=== PATIENT | female | born 1985 | race Hispanic/Latino ===

== ENCOUNTER 2016-09-11 13:09 | Outpatient (CLI) | payer BC ==
--- NOTE | 2016-09-11 14:43 | Mammography Report ---
RIGHT DIGITAL DIAGNOSTIC MAMMOGRAM: 09/11/16 13:09:00 CLINICAL: For clip placement immediately status post ultrasound biopsy. COMPARISON:09/01/16 FINDINGS: A biopsy clip is now identified at 9:30 o'clock. IMPRESSION: Concordant clip placement status post ultrasound biopsy. BI-RADS CATEGORY: 4--Suspicious Pathology pending.
--- NOTE | 2016-09-11 14:43 | Ultrasound Report ---
VACUUM ASSISTED ULTRASOUND GUIDED NEEDLE CORE BIOPSY WITH CLIP PLACEMENT RIGHT BREAST: 09/11/16 13:09:00 CLINICAL: Right breast mass at 9:30 o'clock 9 cm from the nipple. COMPARISON :09/01/16 FINDINGS: The procedure was explained to the patient and informed consent was obtained. Ultrasound demonstrated the previously described solid irregular hypoechoic mass at 9:30 o'clock 9 cm from the nipple. The skin was prepped with Betadine and anesthetized with 1% lidocaine. Vacuum-assisted needle core biopsy was performed through a small dermatotomy using ultrasound guidance, 2% lidocaine with epinephrine for deep anesthesia and a 13-gauge Elite biopsy probe. Imaging demonstrated satisfactory sampling. Multiple cores were obtained and placed in formalin. An 11-gauge Mammostar barbell shape clip was then placed within the lesion. Hemostasis was achieved with mild pressure and a sterile dressing was applied. The patient tolerated the procedure well and there were no apparent complications. A two view mammogram demonstrated concordant clip placement. The patient left the department in good condition with instructions for wound care and follow up. IMPRESSION: Uncomplicated vacuum-assisted ultrasound core biopsy and clip placement right breast.
== END 2016-09-11 13:10 | disposition home or self-care (01) ==
LOC: SPVWC 13:09
PROVIDERS: ATTEND Surgery
DX: N63 Unspecified lump in breast (principal)
CPT/HCPCS: 19083; 88305; A4648; G0206